=== PATIENT | male | born 1965 | race Caucasian/White ===

== ENCOUNTER 2016-11-10 01:24 | Inpatient (IN) | payer MEDICAID ==
[2016-11-10] VITALS (18 sets, daily range): BP systolic 91–136; BP diastolic 57–76; Ht 175.3 cm; Wt 64.9 kg
[~2016-11-10] VITALS: Ht 175.3 cm; Wt 64.9 kg
[~2016-11-10 01:24] MED LIST: ACETAMINOPHEN500 M1 PO; LEVAQUIN 7750 MG/150 IV; LIBRIUM25 MG PO; LOVENOX INJ100 MG/ML SC; XOPENEX 1.1.25 MG/3 UPD
[2016-11-10 02:53] LABS: BASOPHILS 0 % (0.0-2.0); EOSINOPHILS 0.2 % (0-7); HEMATOCRIT 35.1 % (42.0-54.0); HEMOGLOBIN 12.5 g/dL (13.5-17.5); IMMATURE GRANULOCYTES 0.2 % (0-5); LYMPHOCYTES 22.5 % (15-50); MCH 34.7 pg (26.0-34.0); MCHC 35.6 g/dL (31.0-37.0); MCV 97.5 fL (80.0-100.0); MEAN PLATELET VOLUME 9.9 fL (7.4-10.4); MONOCYTES 17.8 % (2-11); NEUTROPHILS 59.3 % (40-80); PLATELET COUNT 76 10x3/uL (130-400); RDW 13.9 % (11.5-14.5)
[2016-11-10 03:07] LABS: ALKALINE PHOSPHATASE 89 U/L (46-116); ALT (SGPT) 37 U/L (10-68); CALC OSMOLALITY 241 mosm/kg (275-300); CALCIUM 8.3 mg/dL (8.5-10.1); CARBON DIOXIDE 26.7 mmol/L (21.0-32.0); CREATININE - SERUM 0.7 mg/dL (0.6-1.3); GLUCOSE 109 mg/dL (74-106); MAGNESIUM - SERUM 1.8 mg/dL (1.8-2.4); POTASSIUM - SERUM 3.3 mmol/L (3.5-5.1); PROTEIN - SERUM 7.6 g/dL (6.4-8.2); UREA NITROGEN 9 mg/dL (7-18); eGFR NON AFRICAN AMERICAN > 90 mL/min (90-120)
[2016-11-10 03:08] LABS: SODIUM 120 mmol/L (136-145)
[2016-11-10 03:09] LABS: CHLORIDE - SERUM 85 mmol/L (98-107)
[2016-11-10 03:28] LABS: PLATELET ESTIMATE DECREASED; PLATELET MORPHOLOGY NORMAL PLT MORPH
--- NOTE | 2016-11-10 05:00 | NUR ---
RECEIVED PATIENT FROM ER, AAOX4, ANSWERS QUESTIONS APPROPRIATELY. ABLE TO WALK TO BED WITH STEADY GATE. VSS. SEE ADMISSION ASSESSMENT FLOWSHEET FOR DETAILS. SET UP ON MONITOR, NSR NOTED. WILL CONTINUE TO MONITOR.
--- NOTE | 2016-11-10 05:40 | NUR ---
CONFIRMED NPO STATUS WITH ER DOC. REPORTS THEY MAY WANT TO DO A BRONCHOSCOPY SOMETIME TODAY. PATIENT INFORMED.
--- NOTE | 2016-11-10 07:00 | NUR ---
ASSUMED CARE OF PATIENT. SHIFT ASSESSMENT COMPLETE. PT RESTING WITHOUT COMPLATINT. SEE FLOW SHEET FOR FINDINGS. PT HAS PIV TO RIGHT FOREARM. NO O2 AT THIS TIME. HAS URINAL AT BEDSIDE WITH STRAW COLORED URINE NOTED.
--- NOTE | 2016-11-10 08:05 | NUR ---
DR GORDON IN TO SEE PATIENT. DISCUSSED POSSIBLE HOSPICE.
--- NOTE | 2016-11-10 08:32 | NUR ---
CALLED [facility] WHERE PATIENT SAYS HAS MEDICATIONS FILLED. ONLY PRESCRIPTION ON FILE THROUGH THEM WAS FOR PREDNISONE BACK IN 2015.
--- NOTE | 2016-11-10 10:47 | NUR ---
PT SLEEPING AT THIS TIME. NO DISTRESS NOTED. WILL CONTINUE TO MONITOR.
--- NOTE | 2016-11-10 11:55 | NUR ---
DR BALDWIN HAS BEEN IN TO SEE PATIENT.
--- NOTE | 2016-11-10 13:30 | NUR ---
PT UP TO TOILET. HAS HAD LOOSE BM. PT BATHED WITH BATH WIPES. HAIR WASHED WITH SHAMPOO CAP. BLANK FERNANDESWN.
--- NOTE | 2016-11-10 14:59 | NUR ---
PT SLEEPING AT THIS TIME. NO DISTRESS NOTED.
--- NOTE | 2016-11-10 16:30 | NUR ---
PT STARTING TO HAVE SHAKES. CALLED DR GORDON AND LET HIM KNOW. ASKED FOR ORDER FOR LIBRIUM 25 MG Q6H AND ATIVAN 1-2MG Q2HPRN. ALSO SAID OK TO TRANSFER TO THE FLOOR.
--- NOTE | 2016-11-10 16:35 | NUR ---
Patient Name: DYLAN MCKEON Admission Status: ER Accout number: [id number] Admission Date: 11-10-2016 : 1965 Admission Diagnosis:HEMOPTYSIS Attending: SUZANNE Current LOS: 1 Anticipated DC Date: UNSURE Planned Disposition: Primary Insurance: [employer] Is the patient Alert and Oriented? Yes * How many steps to enter\exit or inside your home? THREE * PCP HAS BEEN SEEING DR GORDON * Pharmacy [facility] [address] * Preadmission Environment Home Alone * ADLs Independent * List name and contact numbers for known caregivers / representatives who currently or will assist patient after discharge: BONILLA SYED [phone] * Community resources currently utilized None * Additional services required to return to the preadmission environment? Yes * Can the patient safely return to the preadmission environment? No * Has this patient been hospitalized within the prior 30 days at any hospital? No Discharge Planning Comments: CM SPOKE WITH PATIENT TO ASSESS DC PLAN/NEEDS. HE STATED HE PLANS TO RETURN HOME ALONE AND PERSUE CHEMO TREATMENTS WITH DR GORDON. HE STATED HE HAS NO MEDICAL EQUIPMENT AND AMBULATES INDEPENDENTLY. HE IS UNSURE OF ANY DC NEEDS AT THIS TIME AND WISHES TO WAIT UNTIL CLOSER TO DISCHARGE TO DETERMINE IF HE WILL REQUIRE ANY ASSISTANCE OR DME AT DC. CM WILL FOLLOW AND ASSIST NEEDED. Side Sawyer: Blank Milian RN, CM
--- NOTE | 2016-11-10 17:49 | NUR ---
PT RUNNING 103.0 TEMP. NO MEDICATIONS ON EMAR TO REDUCE. CALLED AND LEFT MESSAGE FOR DR GORDON
--- NOTE | 2016-11-10 18:38 | NUR ---
PT ASSISTED UP TO TOILET. HAS HAD LOOSE BM.
--- NOTE | 2016-11-10 19:15 | NUR ---
SHIFT ASSESSMENT COMPLETE, SEE FLOWSHEET FOR DETIALS. O2 AT 2L WITH O2 SAT OF 96%. PIV IN RFA WITH BANANA BAG INFUSING. TEMP OF 100.0F, WILL MONITOR. ORANGE JUICE GIVEN PER REQUESTS. DENIES FURTHER NEED. VSS, CL IN REACH.
--- NOTE | 2016-11-10 20:30 | NUR ---
PATIENT HELPED TO BATHROOM. HAD LARGE LOOSE STOOL. HELPED BACK TO BED AND PUT BACK ON MONITOR.
--- NOTE | 2016-11-10 23:00 | NUR ---
PATIENT RESTING IN BED WATCHING TV. DENIES NEED. REASSESSMENT COMPLETE. NO ACUTE CHANGES FROM INITIAL ASSESSMENT. LOW GRADE FEVER STILL PRESENT. WILL MONITOR. CL IN REACH.
[2016-11-11] VITALS (7 sets, daily range): BP systolic 114–139; BP diastolic 69–80
--- NOTE | 2016-11-11 00:30 | NUR ---
TEMP OF 102.3 NOTED, PRN TYLENOL GIVEN.
--- NOTE | 2016-11-11 03:00 | NUR ---
PATIENT RESTING WITH EYES CLOSED. RR EVEN AND NONLABORED, VSS. CL IN REACH. WILL CONTINUE TO MONITOR.
[2016-11-11 04:35] LABS: BASOPHILS 0.1 % (0.0-2.0); EOSINOPHILS 0.3 % (0-7); HEMATOCRIT 35.7 % (42.0-54.0); HEMOGLOBIN 12.2 g/dL (13.5-17.5); IMMATURE GRANULOCYTES 0.3 % (0-5); LYMPHOCYTES 12.3 % (15-50); MCHC 34.2 g/dL (31.0-37.0); MCV 102.3 fL (80.0-100.0); MEAN PLATELET VOLUME 9.6 fL (7.4-10.4); MONOCYTES 19.1 % (2-11); NEUTROPHILS 67.9 % (40-80); PLATELET COUNT 86 10x3/uL (130-400); RBC 3.49 10x6/uL (4.20-6.10); RDW 14.3 % (11.5-14.5); WBC 7.6 10x3/uL (4.8-10.8)
[2016-11-11 04:44] LABS: CALC OSMOLALITY 272 mosm/kg (275-300); CALCIUM 8.5 mg/dL (8.5-10.1); CARBON DIOXIDE 29.4 mmol/L (21.0-32.0); CHLORIDE - SERUM 99 mmol/L (98-107); CREATININE - SERUM 0.8 mg/dL (0.6-1.3); GLUCOSE 125 mg/dL (74-106); MAGNESIUM - SERUM 2.2 mg/dL (1.8-2.4); POTASSIUM - SERUM 3.4 mmol/L (3.5-5.1); SODIUM 137 mmol/L (136-145); eGFR NON AFRICAN AMERICAN > 90 mL/min (90-120)
[2016-11-11 04:57] LABS: UREA NITROGEN 6 mg/dL (7-18)
--- NOTE | 2016-11-11 05:00 | NUR ---
RECEIVED LAB VALUES, ELECTROLYTE PROTOCOL FOLLOWED. VSS.
--- NOTE | 2016-11-11 07:00 | NUR ---
PT REPORT REC'D, PT CARE ASSUMED. PT SITTING UP IN BED AAO X4. PT C/O GENERALIZED PAIN AT 8/10, REPOSITIONED PT, "DID NOT HELP". RIGHT FOREARM PIV WITH NS INFUSING, DRESSING CDI. PT UP TO BATHROOM NEEDED. BILAT PEDAL PULSES PALPABLE. VSS. SHIFT ASSESSMENT COMPLETED, SEE FLOW SHEET. ROOM FREE OF CLUTTER CALL LIGHT IN REACH, WILL CONTINUE TO MONITOR PT.
[2016-11-11 08:53] LABS: POTASSIUM - SERUM 3.8 mmol/L (3.5-5.1); VANCOMYCIN - TROUGH 4.7 ug/mL (10.0-20.0)
--- NOTE | 2016-11-11 11:52 | NUR ---
PT RESTING WITH EYES CLOSED, NO C/O PAIN, VSS. WILL CONTINUE TO MONITOR PT.
--- NOTE | 2016-11-11 12:49 | NUR ---
PT RESTING WITH EYES CLOSED, NO C/O PAIN, VSS. WILL CONTINUE TO MONITOR PT.
--- NOTE | 2016-11-11 14:04 | NUR ---
REPORT RECD PT CARE ASSUMED AT THIS TIME.
--- NOTE | 2016-11-11 14:45 | NUR ---
PT ASSITED TO BATHROOM. PT DOES WELL INDEPENENTLY. PT COUGHS VIGOROUSLY IN EFFORT TO CLEAR THROAT. PT STATES HE IS ALRIGHT AND SPITS LARGE MUCUS BALL INTO TRASH. PT ASSISTED BACK TO BED AND PROVIDED WITH WARM BLANKET AND TYLENOL. PT ATTACHED BACK TO MONITORS.
--- NOTE | 2016-11-11 17:51 | NUR ---
PT SITTING UP IN BED EATING DINNER AT THIS TIME. PT STATES HE THINKS HE FEELS A LITTLE BIT BETTER.
--- NOTE | 2016-11-11 19:20 | NUR ---
SHIFT ASSESSMENT COMPLETE PER FLOWSHEET, SEE FOR DETAILS. AAOX4, NC @ 2L WITH SATS 94-97%. PIV IN RIGHT FA WITH NS @ 100MLS/HR. PATIENT COMPLAINING OF SHARP CHEST PAIN ALONG RIGHT SIDE OF RIBS THAT IS CHRONIC. VSS WILL MONITOR.
--- NOTE | 2016-11-11 19:30 | NUR ---
DR GORDON AT BEDSIDE, ORDERS RECEIVED.
--- NOTE | 2016-11-11 21:05 | NUR ---
PATIENT RESTING IN BED WITH EYES CLOSED. VSS.
--- NOTE | 2016-11-11 23:00 | NUR ---
REASSESSMENT COMPLETE. NO ACUTE CHANGES. VSS, APPLE JUICE GIVEN PER REQUESTS. CL IN REACH, WILL MONITOR.
[2016-11-12] VITALS (8 sets, daily range): BP systolic 116–136; BP diastolic 54–88
--- NOTE | 2016-11-12 01:00 | NUR ---
RESTING WITH EYES CLOSED, VSS.
--- NOTE | 2016-11-12 03:00 | NUR ---
DENIES NEED AT THIS TIME. VSS. REASSESSMENT DONE. NO ACUTE CHANGES FROM INITIAL ASSESSMENT.
[2016-11-12 04:17] LABS: BASOPHILS 0.1 % (0.0-2.0); EOSINOPHILS 1.1 % (0-7); HEMATOCRIT 33.8 % (42.0-54.0); HEMOGLOBIN 11.1 g/dL (13.5-17.5); IMMATURE GRANULOCYTES 0.1 % (0-5); LYMPHOCYTES 17.2 % (15-50); MCH 34.6 pg (26.0-34.0); MCHC 32.8 g/dL (31.0-37.0); MCV 105.3 fL (80.0-100.0); MEAN PLATELET VOLUME 9.5 fL (7.4-10.4); MONOCYTES 18.1 % (2-11); NEUTROPHILS 63.4 % (40-80); PLATELET COUNT 97 10x3/uL (130-400); RBC 3.21 10x6/uL (4.20-6.10); RDW 14.5 % (11.5-14.5); WBC 8.9 10x3/uL (4.8-10.8)
[2016-11-12 04:34] LABS: CALC OSMOLALITY 268 mosm/kg (275-300); CALCIUM 8.2 mg/dL (8.5-10.1); CARBON DIOXIDE 27.2 mmol/L (21.0-32.0); CHLORIDE - SERUM 102 mmol/L (98-107); CREATININE - SERUM 0.7 mg/dL (0.6-1.3); GLUCOSE 106 mg/dL (74-106); MAGNESIUM - SERUM 2.1 mg/dL (1.8-2.4); POTASSIUM - SERUM 3.9 mmol/L (3.5-5.1); SODIUM 136 mmol/L (136-145); UREA NITROGEN 4 mg/dL (7-18); eGFR NON AFRICAN AMERICAN > 90 mL/min (90-120)
--- NOTE | 2016-11-12 05:00 | NUR ---
PATIENT RESTING IN BED WITH EYES CLOSED, VSS.
--- NOTE | 2016-11-12 07:30 | NUR ---
PT NOTED TO BE WITH TREMORS TACHYCARDIC AND TACHYPNIC.
--- NOTE | 2016-11-12 10:00 | NUR ---
RESTING IN BED STATES "I FEEL LIKE IM DT'ING"
--- NOTE | 2016-11-12 16:05 | NUR ---
UP TO CHAIR. STATES "IM FEELING A LITTLE BETTER"
--- NOTE | 2016-11-12 16:55 | NUR ---
COMPLETE BATH AND SHAMPOO GIVEN. LINENS CHANGED.
--- NOTE | 2016-11-12 19:30 | NUR ---
RECEIVED PATIENT AWAKE SITTING IN CHAIR AT BEDSIDE, ASSESSMENT COMPLETED PER FLOWSHEET. PATIENT IS AO X4, DEMEANOR IS FRIENDLY AND CALM. EYES PERRLA @ 3MM WITH BRISK RESPONSE, SLCERA IS WHITE. ORAL/NASAL MUCOSA IS MOIST AND INTACT, TONGUE MIDLINE. S1/S2 NOTED WITH PATIENT NSR ON TELEMETRY, HR 91. BREATHING IS SLIGHTLY RAPID WITH WHEEZE NOTED INSPIRATION/EXPIRATION IN UPPER LOBES WITH DIMINISHED LOWER, PATIENT ON 4L VIA NC WITH O2 SAT 94%. ABDOMEN IS SOFT AND FLAT, BOWEL SOUNDS ACTIVE X4. PATIENT USES URINAL WITHOUT DIFFICULTY, AMBULATES TO CHAIR WITHOUT ASSISTANCE. FULL ROM ALL EXTREMITIES WITH SLIGHT WEAKNESS NOTED, ALL PULSES PALPABLE. 20G PIV NOTED R FOREARM, PATENT WITH FLUIDS INFUSING. PATIENT STATES CHRONIC PAIN 3/10 GENERALIZED, PROVIDED PRN MEDICATION FOR PATIENT DT/TREMORS AND WILL REASSESS. PATIENT DENIES OTHER NEEDS AT THIS TIME, ALL VSS AND COLBY CONTINUE TO MONITOR.
--- NOTE | 2016-11-12 21:09 | NUR ---
NO VISITORS AT THIS TIME, PATIENT RESTING IN CHAIR WITH EYES CLOSED. PATIENT STILL EATING ON DINNER TRAY, REHEATED AT PATIENT REQUEST. NO FURTHER NEEDS AT THIS TIME, ALL VSS AND WILL CONTINUE TO MONITOR.
--- NOTE | 2016-11-12 22:40 | NUR ---
Patient transferred from chair to bed, one person assist. Positioned for comfort with patient c/o "cold", warm blankets provided for relief. Patient denies other needs at this time, all VSS and will continue to monitor.
[2016-11-13] VITALS (7 sets, daily range): BP systolic 119–138; BP diastolic 66–80
--- NOTE | 2016-11-13 01:00 | NUR ---
PATIENT RESTING IN BED WITH EYES CLOSED, BREATHING IS RAPID AND SHALLOW. PATIENT OXYGEN SAT 98% ON 2L VIA NC. NO FURTHER NEEDS AT THIS TIME, ALL VSS AND WILL CONTINUE TO MONITOR.
--- NOTE | 2016-11-13 03:00 | NUR ---
PATIENT RESTING IN BED WITH EYES CLOSED, BREATHING IS SHALLOW AND RAPID. PATIENT O2 SAT IS 97% ON 2L VIA NC, FREQUENT COUGH WITH THICK VERDE SPUTUM. PATIENT SINUS TACH ON TELEMETRY WITH HR 126, RHYTHMIC AND REGULAR. PATIENT DENIES PAIN OR OTHER NEEDS AT THIS TIME, ALL VSS AND WILL CONTINUE TO MONITOR.
[2016-11-13 03:44] LABS: BASOPHILS 0.2 % (0.0-2.0); HEMOGLOBIN 11.4 g/dL (13.5-17.5); IMMATURE GRANULOCYTES 0.2 % (0-5); LYMPHOCYTES 13.1 % (15-50); MCH 34.3 pg (26.0-34.0); MCHC 32.6 g/dL (31.0-37.0); MCV 105.4 fL (80.0-100.0); MONOCYTES 18.4 % (2-11); NEUTROPHILS 65.1 % (40-80); RBC 3.32 10x6/uL (4.20-6.10); RDW 14.3 % (11.5-14.5)
[2016-11-13 03:45] LABS: PLATELET COUNT 146 10x3/uL (130-400); WBC 6.4 10x3/uL (4.8-10.8)
[2016-11-13 03:57] LABS: CALC OSMOLALITY 268 mosm/kg (275-300); CALCIUM 8.2 mg/dL (8.5-10.1); CARBON DIOXIDE 27.1 mmol/L (21.0-32.0); CHLORIDE - SERUM 102 mmol/L (98-107); CREATININE - SERUM 0.8 mg/dL (0.6-1.3); GLUCOSE 122 mg/dL (74-106); MAGNESIUM - SERUM 1.9 mg/dL (1.8-2.4); POTASSIUM - SERUM 4.1 mmol/L (3.5-5.1); SODIUM 135 mmol/L (136-145); UREA NITROGEN 6 mg/dL (7-18); eGFR NON AFRICAN AMERICAN > 90 mL/min (90-120)
--- NOTE | 2016-11-13 05:10 | NUR ---
PATIENT LAYING IN BED WITH EYES OPEN. PATIENT URINATED IN BED WITHOUT REALIZING, LEONE CATH INSERTED WITHOUT DIFFICULTY. FULL BED BATH/LINEN CHANGE PERFORMED, TOLERATED WELL. PATIENT DENIES PAIN OR OTHER NEEDS AT THIS TIME, ALL VSS AND WILL CONTINUE TO MONITOR.
[2016-11-13 06:39] LABS: APPEARANCE CLEAR (CLEAR); BACTERIA FEW /hpf (NONE SEEN); BILIRUBIN NEGATIVE (NEGATIVE); COLOR YELLOW (YELLOW); EPITHELIAL CELLS OCC /hpf (0-5); GLUCOSE NEGATIVE (NEGATIVE); KETONE NEGATIVE (NEGATIVE); LEUKOCYTE ESTERASE NEGATIVE (NEGATIVE); NITRITE NEGATIVE (NEGATIVE); PROTEIN NEGATIVE (NEGATIVE); RED CELLS - URINE 0-5 /hpf (0-5); SPECIFIC GRAVITY 1.005 (1.005-1.020); UROBILINOGEN NORMAL (NORMAL); WHITE CELLS - URINE RARE /hpf (0-5)
--- NOTE | 2016-11-13 07:00 | NUR ---
REC'D CARE OF PT. A&O X3.
--- NOTE | 2016-11-13 07:37 | NUR ---
ATTEMPTED TO CALL REPORT TO TRANSFER TO ROOM 2227. [facility] WILL CALL ME BACK.
--- NOTE | 2016-11-13 07:44 | NUR ---
REPORT CALLED TO STAR AND READY TO TRANSFER VIA WC TO ROOM 2227.
--- NOTE | 2016-11-13 07:59 | NUR ---
DR. WHITE AT BEDSIDE. DISCUSSED FEVER WITH HIM.
--- NOTE | 2016-11-13 08:20 | NUR ---
RECEIVED TO ROOM 2227 [facility] VIA BED.
--- NOTE | 2016-11-13 10:08 | EC ---
PATIENT:DYLAN MCKEON DATE OF SERVICE: 11/10/16 SEX: M MEDICAL RECORD: [id number] DATE OF : [birth year] LOCATION:D.MS [facility] AGE OF PATIENT: 51 ADMISSION DATE: 11/10/16 REFERRING PHYSICIAN: INTERPRETING PHYSICIAN: YASMIN HUANG MD ECHOCARDIOGRAM REPORT ECHO CHARGES 4 ECHO COMPLETE CLINICAL DIAGNOSIS: PERICARDIAL EFFUSION ? ECHOCARDIOGRAPHIC MEASUREMENTS (adult normal given) AC root (d.<3.7cm) 3.6 LV Septum d (<1.2 cm> 1.2 Valve Excursion 1.8 LV Septum (systole) 2.0 Left Atria (s.<4.0cm> 2.9 LVPW d(<1.2cm) 1.4 RV (d.<2.3cm) 2.6 LVPW (sytole) 2.0 LV diastole(<5.6CM) 4.4 MV E-F(>70mm/sec) LV systole 2.5 LVOT Diameter 1.8 MV exc.(>10mm) Est.ejection fraction (50-75%) Pericardial Effusion N DOPPLER: LVIT A 89.0 E 76.0 LA RVSP 22.0 LVOT 120 AOP1/2T Asc. Ao 175 RVOT 89.0 RA PA 145 AV Gradient Peak 12.3 AV Mean 4.3 AV Area 1.7 MV Gradient Peak 3.6 MV Mean 1.3 MV Area COMMENTS: Telemetry Nurse: Lizbet LEEOE Head Of Physics:1 Dr. Huang TAPE# PACS DATE OF SERVICE: 11/10/2016 Echocardiogram FINDINGS: 1. Left ventricle chamber size is within normal limits. Left ventricular systolic function is normal. Overall ejection fraction estimated at 60%-65%. 2. Left atrium, right atrium and right ventricular chamber sizes are within normal limits. 3. Valvular structures have normal structure and motion. ECHOCARDIOGRAM REPORT [id number] DYLAN MCKEON 4. Doppler interrogation reveals no significant valvular insufficiency or stenosis. Pulmonary systolic pressure is normal estimated at 22 mmHg. 5. No evidence of pericardial effusion or left ventricular thrombus. TRANSINT:[id number] Voice Confirmation ID: [id number] DOCUMENT ID: [id number] YASMIN HUANG MD at 1008 CC: [id number] DICTATION DATE: 11/10/16 1323 PROFESSOR OF JOURNALISM: 11/10/16 1523 ADM IN [facility] [address] [place] [address]
--- NOTE | 2016-11-13 11:59 | NUR ---
MEDS ADMINISTERED PER ORDER. CALL LIGHT IN REACH.
--- NOTE | 2016-11-13 12:14 | NUR ---
HAVING SMALL AMOUNT OF CLEAR EMESIS. NO C/O NAUSEA. ORAL CARE PER STAFF. DENIES NEEDS. LUNGS WITH CRACKLES THROUGHOUT. WILL CONTINUE TO MONITOR.
--- NOTE | 2016-11-13 14:25 | NUR ---
RESTING WITH EYES CLOSED. RESP EVEN AND UNLABORED. CALL LIGHT IN REACH.
--- NOTE | 2016-11-13 15:03 | NUR ---
NUTRITION MONITORING & EVAL CHART REVIEWED. PT DID NOT EAT BREAKFAST OR LUNCH. WILL CONTINUE TO PROVIDE DIET, MONITOR PO INTAKE. RD FOLLOWING
--- NOTE | 2016-11-13 16:19 | NUR ---
ZOSYN IVPB PER ORDER. CALL LIGHT IN REACH.
[2016-11-13 17:11] LABS: ANCA - ANTIMYELOPEROXIDASE <9.0 U/mL (0.0-9.0); ANCA - ANTIPROTEINASE 3 <3.5 U/mL (0.0-3.5); ANCA - ATYPICAL <1:20 titer (Neg:<1:20); ANCA - CYTOPLASMIC <1:20 titer (Neg:<1:20); ANCA - PERINUCLEAR <1:20 titer (Neg:<1:20)
--- NOTE | 2016-11-13 18:49 | NUR ---
NO CHANGES IN INITIAL ASSESSMENT. SCDs TO BLE. BED ALARM ON. CALL LIGHT IN REACH. WILL CONTINUE WITH PLAN OF CARE.
[2016-11-14] VITALS (13 sets, daily range): BP systolic 103–131; BP diastolic 59–80
--- NOTE | 2016-11-14 06:34 | NUR ---
PATIENT IS RESTING COMFORTABLY IN BED. DENIES PAIN @ THIS TIME. IS TO HAVE A THROCENTESIS TODAY @ 0800. CONSENT FORMS ARE SIGNED AND PATIENT WAS INFORMED OF PROCEDURE. BED LOW, LOCKED, CALL LIGHT IN REACH.
[2016-11-14 06:35] LABS: BASOPHILS 0.3 % (0.0-2.0); EOSINOPHILS 1.8 % (0-7); HEMATOCRIT 34.7 % (42.0-54.0); HEMOGLOBIN 11.4 g/dL (13.5-17.5); IMMATURE GRANULOCYTES 0.3 % (0-5); LYMPHOCYTES 14.2 % (15-50); MCH 34.3 pg (26.0-34.0); MCHC 32.9 g/dL (31.0-37.0); MCV 104.5 fL (80.0-100.0); MONOCYTES 19.9 % (2-11); NEUTROPHILS 63.5 % (40-80); RBC 3.32 10x6/uL (4.20-6.10); RDW 13.9 % (11.5-14.5); WBC 7.7 10x3/uL (4.8-10.8)
[2016-11-14 06:43] LABS: PLATELET COUNT 193 10x3/uL (130-400)
[2016-11-14 06:46] LABS: APTT 38.2 SECONDS (22.8-39.4); INR 1.13 (0.85-1.17); PROTIME 14.4 SECONDS (11.6-15.0)
[2016-11-14 06:56] LABS: CALC OSMOLALITY 272 mosm/kg (275-300); CALCIUM 8.6 mg/dL (8.5-10.1); CARBON DIOXIDE 28.4 mmol/L (21.0-32.0); CHLORIDE - SERUM 104 mmol/L (98-107); CREATININE - SERUM 0.7 mg/dL (0.6-1.3); GLUCOSE 95 mg/dL (74-106); MAGNESIUM - SERUM 1.8 mg/dL (1.8-2.4); POTASSIUM - SERUM 4.4 mmol/L (3.5-5.1); SODIUM 138 mmol/L (136-145); UREA NITROGEN 5 mg/dL (7-18); eGFR NON AFRICAN AMERICAN > 90 mL/min (90-120)
--- NOTE | 2016-11-14 07:47 | CN ---
PATIENT NAME:DYLAN MCKEON MEDICAL RECORD: [id number] : [birth year] LOCATION:D.MS [facility]27 ADMIT DATE: 11/10/16 ACCOUNT: [id number] CONSULTING PHYSICIAN: ASHOK PAK MD REFERRING PHYSICIAN: BERTA GORDON MD DATE OF CONSULTATION: 11/13/2016 SURGICAL CONSULTATAION REASON FOR CONSULTATION: Bronchial mass, hemoptysis. 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 He has been followed at [facility]. He has had multiple endobronchial biopsies. The patient is completely noncompliant with care. He has been practicing alcoholic. He presented to the hospital with alcohol intoxication as well as hemoptysis. REVIEW OF SYSTEMS: Unobtainable. The patient is very confused. PAST MEDICAL HISTORY: Childhood asthma, alcoholism, recreational drug use, synovial sarcoma. PAST SURGICAL HISTORY: Tonsilloadenoidectomy, bronchoscopy and lung biopsy. ALLERGIES: Unknown. MEDICATIONS: Please see [facility] for full list of medications. PERSONAL HISTORY: The patient has been practicing daily alcoholic. He is still smoking daily. He drinks. FAMILY HISTORY: Unknown. PHYSICAL EXAMINATION: VITAL SIGNS: Heart rate 99.9, pulse rate 105, respiratory rate 33, blood pressure 127/50, satting 95% on 3.5 liters of nasal cannula. GENERAL: A well-developed, well-nourished male in moderate distress. PSYCHIATRIC: He is alert and oriented. EYES: Extraocular muscles are intact. EAR, NOSE AND THROAT: He has got poor dentition. PULMONARY: He has absent breath sounds on the right, decreased breath sounds on the left. CARDIOVASCULAR: Normal sinus rhythm, tachycardic. ABDOMEN: Soft, nontender and nondistended. SKIN: Warm and dry with normal turgor. EXTREMITIES: A 2+ pulses, mild peripheral edema. NEUROLOGIC: He has a GCS of 15 with no focal deficits. CT chest images were personally reviewed, which showed endobronchial occlusion of right mainstem bronchus, atelectasis, infiltrate in the right lung, moderate right pleural effusion with mediastinal adenopathy. 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 The patient has not had a bronchoscopy ____ 6-8 months. I do not recommend endobronchus ____at this time CONSULT REPORT [id number] MIKEDYLAN J as I do not know the extent of the lesion within the bronchus. Pulmonology is following, recommend repeat bronchoscopy prior to possible stent placement. The patient would likely not benefit from an endobronchial stent. Although he is severely noncompliant and continues to drink and smoke daily, treatment at this point, would likely be requires surgical resection of the right lung. Recommend consulting cardiothoracic surgery for evaluation. Recommending patient be evaluated by palliative care for potential hospice. TRANSINT:[id number] Voice Confirmation ID: [id number] DOCUMENT ID: [id number] ASHOK PAK MD at 0747 CC: [id number] DICTATION DATE: 11/13/161422 BAND BIAS MACHINE OPERATOR: 11/14/16 0023 ADM IN [facility] [address] [place] [address]
--- NOTE | 2016-11-14 08:25 | NUR ---
SCHEDULED MEDICATIONS ADMINISTERED AT THIS TIME WELL PRN ATIVAN AND TYLENOL FOR TEMP 100.9 TEMPORAL. IV TO RIGHT WRIST PATENT. ASSESSMENT PERFORMED PER FLOWSHEET. BED ALARM AND SCD'S ON. CONSENT FOR SIGNED FOR PROCEDURE. CALL LIGHT IN REACH, WILL CONTINUE WITH PLAN OF CARE.
--- NOTE | 2016-11-14 09:34 | NUR ---
TAKEN FOR THORACENTESIS AT THIS TIME. WILL MONITOR PT WHEN HE RETURNS TO ROOM.
--- NOTE | 2016-11-14 10:10 | NUR ---
RECEIVED BACK TO ROOM FROM IR AT THIS TIME. DRESSING TO RIGHT CHEST C/D/I AND VITAL SIGNS STABLE. SCHEDULED MEDICATIONS ADMINSITERED WITHOUT DIFFICULTY. CALL LIGHT IN REACH AND BED ALARM ON. WILL CONTINUE WITH PLAN OF CARE.
--- NOTE | 2016-11-14 12:05 | NUR ---
REMAINS STABLE AT THIS TIME. DRESSING TO RIGHT CHEST C/D/I. CALL LIGHT IN REACH, DENIES NEEDS AT PRESENT TIME. WILL CONTINUE WITH PLAN OF CARE.
[2016-11-14 12:10] LABS: PROTEIN - BODY FLUID 3.8 G/DL
--- NOTE | 2016-11-14 13:25 | NUR ---
SLEEPING AT THIS TIME. RESPIRATIONS EVEN AND NON LABORED. CALL LIGHT IN REACH, WILL CONTINUE WITH PLAN OF CARE.
[2016-11-14 13:59] LABS: EOS BF 1 %; LYMPH - BF 12 %; MACROPHAGES BF 6 %; NEUT - BF 81 %
--- NOTE | 2016-11-14 19:10 | NUR ---
RECIEVED SHIFT REPORT. PT IS LYING IN BED. ALERT AND ORIENTED AND ABLE TO VERBALIZE NEEDS. IV IS PATENT AND FLUIDS ARE RUNNING PER ORDER. PT CAN TURN SELF IN BED FOR COMFORT AND SKIN CARE, HOWEVER HE NEEDS TO BE REMINDED. LEONE IS DRAINING URINE BY GRAVITY. O2 @ 2 PER NASAL CANNULA. SCD'S ON. DRESSING TO RIGHT SIDE C/D/I. PT DENIES ANY PAIN AT THIS TIME. NO NEEDS ARE VERBALIZED AT THIS TIME. WILL CONTINUE TO MONITOR. SIDE RAILS ARE UP X 2. BED IS IN LOWEST POSITION. CALL LIGHT IS WITHIN REACH.
--- NOTE | 2016-11-14 20:40 | NUR ---
SHIFT ASSESSMENT COMPLETED. PRN TYLENOL GIVEN FOR FEVER OF 101. NO NEEDS ARE VOICED. WILL MONITOR. SIDE RAILS X 2. BED LOW. CALL LIGHT IN REACH.
[2016-11-15] VITALS: BP 114/79
[2016-11-15 04:09] VITALS: BP 115/736
[2016-11-15 06:25] LABS: CALC OSMOLALITY 273 mosm/kg (275-300); CALCIUM 7.9 mg/dL (8.5-10.1); CARBON DIOXIDE 26.1 mmol/L (21.0-32.0); CHLORIDE - SERUM 102 mmol/L (98-107); CREATININE - SERUM 0.7 mg/dL (0.6-1.3); GLUCOSE 108 mg/dL (74-106); MAGNESIUM - SERUM 1.8 mg/dL (1.8-2.4); POTASSIUM - SERUM 3.7 mmol/L (3.5-5.1); SODIUM 138 mmol/L (136-145); UREA NITROGEN 5 mg/dL (7-18); eGFR NON AFRICAN AMERICAN > 90 mL/min (90-120)
[2016-11-15 07:16] LABS: BASOPHILS 0.1 % (0.0-2.0); EOSINOPHILS 3.2 % (0-7); HEMATOCRIT 33.4 % (42.0-54.0); HEMOGLOBIN 11.1 g/dL (13.5-17.5); IMMATURE GRANULOCYTES 0.3 % (0-5); LYMPHOCYTES 11.6 % (15-50); MCH 34.5 pg (26.0-34.0); MCHC 33.2 g/dL (31.0-37.0); MCV 103.7 fL (80.0-100.0); MONOCYTES 12.9 % (2-11); NEUTROPHILS 71.9 % (40-80); PLATELET COUNT 215 10x3/uL (130-400); RBC 3.22 10x6/uL (4.20-6.10); RDW 13.7 % (11.5-14.5); WBC 7.5 10x3/uL (4.8-10.8)
--- NOTE | 2016-11-15 07:53 | NUR ---
PRN TYLENOL 500MG ADMINISTERED AT THIS TIME FOR TEMPERATURE OF 103.0 ORALLY AT THIS TIME. LARGE BLANKET REMOVED FROM BLANKET AND HEAT TURNED OFF IN PT'S ROOM. DENIES FURTHER NEEDS AT THIS TIME. CALL LIGHT IN REACH, WILL CONTINUE WITH PLAN OF CARE.
[2016-11-15 08:40] VITALS: BP 120/74
--- NOTE | 2016-11-15 09:12 | NUR ---
TEMPERATURE CHECKED AND 101.0 AT THIS TIME. SCHEDULED MEDICATIONS ADMINISTERED AND ASSESSMENT PERFORMED PER FLOWSHEET. SCD'S REMOVED AND SKIN TO BLE WNL. CALL LIGHT IN REACH, WILL CONTINUE WITH PLAN OF CARE.
--- NOTE | 2016-11-15 10:54 | NUR ---
SCHEDULED MEDICATIONS GIVEN AT THIS TIME. SCD'S REMAIN OFF. CALL LIGHT IN REACH AND PT DENIES NEEDS AT THIS TIME. WILL CONTINUE WITH PLAN OF CARE.
[2016-11-15 13:31] VITALS: BP 183/73
[2016-11-15 14:21] LABS: FUNGUS STAIN Final report (())
[2016-11-15 15:24] LABS: ACID FAST SMEAR Negative (()); AFB SPECIMEN PROCESSING Concentration (())
[2016-11-15 17:19] VITALS: BP 117/74
--- NOTE | 2016-11-15 17:53 | NUR ---
PRN TYLENOL ADMINISTERED AT THIS TIME FOR FEVER. PT DRINKING BEER ORDERED AT THIS TIME. NO S/S DISPLAYED OF DT'S. CALL LIGHT IN REACH, WILL CONTINUE WITH PLAN OF CARE.
[2016-11-15 21:35] VITALS: BP 111/65
--- NOTE | 2016-11-16 01:17 | NUR ---
REC'D PATIENT LYING SEMI FOWLERS IN BED. ALERT AND ORIENTED X4. DENIED PAIN @ THIS TIME. MUCUS MEMBRANES PINK AND MOIST. DENIES HEARING AND VISION PROBLEMS. ABDOMEN SOFT, NON TENDER TO TOUCH. HAS LEONE. URINE CLEAR, STRAW-COLORED, DRAINING TO GRAVITY. FULL ROM IN UPPER AND LOWER EXTREMITIES. CAP REFILL <3 IN UPPER AND LOWER EXTREMITES. GAIT IS UNSTEADY. IS ON 1000ML FLUID RESTRICTION. DENIED NEEDS @ THIS TIME. INSTUCTED TO CALL IF NEEDED ANYTHING. BED LOW, LOCKED, CALL LIGHT IN REACH, BED ALARM ON.
--- NOTE | 2016-11-16 02:58 | NUR ---
PATIENT SITTING UP IN BED WATCHING TV. PERFORMED LEONE CARE. PATIENT IS RED BETWEEN THE LEGS AND STATED THAT IT BURNED AFTER I WHIPPED HIM. PUT SOME CREAM ON HIM. PATIENT STATED THAT IT FELT BETTER. ALSO WANTED TO KNOW IF I COULD GET HIM SOMETHING TO EAT. GAVE HIM A SANDWICH. DENIED FURTHER NEEDS @ THIS TIME. INSTRUCTED TO CALL IF NEEDED ANYTHING. BED LOW, LOCKED, CALL LIGHT IN REACH, BED ALARM ON.
--- NOTE | 2016-11-16 04:08 | NUR ---
EYES CLOSED RESPIRATIONS WITH EASE AND UNLABORED. SR UP X2 CALL LIGHT WITHIN REACH.
--- NOTE | 2016-11-16 07:45 | NUR ---
PATIENT IN BED WITH IV INTACT. NO COMPLAINTS AT THIS TIME. SITTING UP WAITING FOR BREAKFAST. CALL LIGHT WITHIN REACH.
--- NOTE | 2016-11-16 08:08 | NUR ---
SITTING IN BED, REQUESTING BREAKFAST, DENIES OTHER NEEDS, CALL LIGHT IN REACH, BED LOWEST POSITION, WILL CONTINUE TO MONITOR
[2016-11-16 08:29] VITALS: BP 108/67
[2016-11-16 12:43] VITALS: BP 108/64
[2016-11-16 15:48] VITALS: BP 126/79
[2016-11-16 21:54] VITALS: BP 98/59
--- NOTE | 2016-11-16 23:51 | NUR ---
PT IS ASLEEP WITH EASY RESPIRATIONS AND O2 ON ORDERED. NO DISTRESS NOTED. THE BED IS LOW, RAILS UP X'S 2 WITH THE CALL LIGHT AT HAND.
[2016-11-17 06:33] LABS: BASOPHILS 0.3 % (0.0-2.0); EOSINOPHILS 1.8 % (0-7); HEMATOCRIT 33.1 % (42.0-54.0); IMMATURE GRANULOCYTES 0.3 % (0-5); MCH 34.2 pg (26.0-34.0); MCHC 33.2 g/dL (31.0-37.0); MCV 102.8 fL (80.0-100.0); MEAN PLATELET VOLUME 9.8 fL (7.4-10.4); MONOCYTES 11.8 % (2-11); NEUTROPHILS 72.8 % (40-80); RBC 3.22 10x6/uL (4.20-6.10); RDW 13.6 % (11.5-14.5); WBC 9.3 10x3/uL (4.8-10.8)
[2016-11-17 06:43] LABS: PLATELET COUNT 283 10x3/uL (130-400)
[2016-11-17 06:48] LABS: CALC OSMOLALITY 280 mosm/kg (275-300); CALCIUM 8.4 mg/dL (8.5-10.1); CARBON DIOXIDE 28.9 mmol/L (21.0-32.0); CHLORIDE - SERUM 107 mmol/L (98-107); CREATININE - SERUM 0.7 mg/dL (0.6-1.3); GLUCOSE 112 mg/dL (74-106); MAGNESIUM - SERUM 1.9 mg/dL (1.8-2.4); POTASSIUM - SERUM 3.8 mmol/L (3.5-5.1); SODIUM 142 mmol/L (136-145); UREA NITROGEN 5 mg/dL (7-18); eGFR NON AFRICAN AMERICAN > 90 mL/min (90-120)
--- NOTE | 2016-11-17 08:10 | NUR ---
RESTING IN BED, EMPTIED 2299 FROM SULEMA, DENIES NEEDS, ASSESSMENT COMPLETE, CALL LIGHT IN REACH, BED LOWEST POSITION, WILL CONTINUE TO MONITOR
[2016-11-17 08:31] VITALS: BP 106/59
[2016-11-17 12:34] VITALS: BP 111/66
--- NOTE | 2016-11-17 13:40 | NUR ---
NUTRITION MONITORING & EVAL CHART REVIEWED. PT ON REG DIET, POOR PO INTAKE. WILL CONTINUE TO PROVIDE CURRENT DIET, HONOR FOOD PREFERENCES. RD FOLLOWING
--- NOTE | 2016-11-17 15:13 | NUR ---
RESTING QUIETLY IN BED SIPPING ON BEER. NO C/O AT THIS TIME. STATED HE WAS FEELING PRETTY ROUGH AT THIS TIME. DENIES NEEDS.
[2016-11-17 16:26] VITALS: BP 100/62
--- NOTE | 2016-11-17 18:49 | NUR ---
SLEEPING, EASILY AROUSED, DENIES NEEDS, BED LOWEST POSITION, CALL LIGHT IN REACH
--- NOTE | 2016-11-17 19:15 | NUR ---
Received patient resting quietly in bed, PIV in left forearm infusing NS @30ml/hr. Patient somewhat drowsy, but is oriented x 4. SCDs on, bed alarm on. No voiced complaints at this time.
--- NOTE | 2016-11-17 21:54 | NUR ---
Complains of feeling shaky, tremors noted to arms and hands. Given routine dose of Librium now. Oxygen on @ 2L/min via nasal cannula, encouraged to take deep breaths. IV in right forearm infusing NS @30ml/hr. Patient got IV tubing tangled in bedrail, detangled by nurse and PIV in place.
[2016-11-17 22:05] VITALS: BP 118/73
[2016-11-18] VITALS: BP 92/57
--- NOTE | 2016-11-18 03:30 | NUR ---
Restless in bed, confused, pulled out his PIV, IV pump turned off at this time.
--- NOTE | 2016-11-18 04:09 | NUR ---
Given Tylenol ES 1 tab po PRN for complaints of generalized pain. Will monitor for effectiveness.
--- NOTE | 2016-11-18 05:00 | NUR ---
Restarted PIV with #20 gauge needle in under side of right forearm. NS IV restarted and set to infuse @30ml/hr.
--- NOTE | 2016-11-18 05:10 | NUR ---
Given Ativan 2mg per IV for complaints of severe anxiety, restless and fidgety in bed.
[2016-11-18 05:26] VITALS: BP 109/68
--- NOTE | 2016-11-18 06:00 | NUR ---
Has slept for short periods. Calmer at this time, Ativan deemed effective, pain free at this time, still slightly shaky with fine hand tremors. Has voided 1150mls this shift via vargas catheter.
--- NOTE | 2016-11-18 07:10 | NUR ---
BMP not resulted yet in computer for electrolyte protocol.
[2016-11-18 08:57] VITALS: BP 99/63
--- NOTE | 2016-11-18 12:05 | NUR ---
PATIENT IN LOW ADAMS POSITION ALERT AND RESTING QUIETLY. NO SIGNS OF DISTRTESS NOTED. SIDE RAILS UP X3. BED IN LOW POSITION. CALL LIGHT IN REACH.
[2016-11-18 12:24] VITALS: BP 105/68
[2016-11-18 16:02] VITALS: BP 119/67
--- NOTE | 2016-11-18 19:30 | NUR ---
PATIENT RESTING IN BED WATCHING TV. PATIENT DENIES NEEDS AT THIS TIME. BED IN LOWEST POSITION AND CALL LIGHT WITHIN REACH. ENCOURAGED PATIENT TO CALL IF HE HAS OTHER NEEDS.
[2016-11-18 20:00] VITALS: BP 113/70
--- NOTE | 2016-11-18 21:25 | NUR ---
GAVE PATIENT A BEER PER HIS REQUEST.
--- NOTE | 2016-11-18 23:29 | NUR ---
PATIENT'S TEMP 102.3, ADMINISTERED TYLENOL.
[2016-11-19 00:52] VITALS: BP 112/67
[2016-11-19 05:40] VITALS: BP 94/57
--- NOTE | 2016-11-19 07:20 | NUR ---
PT REC'D FROM PAULINA ECKERT. RESTING IN BED WITH EYES CLOSED. NO SIGNS OF DISTRESS. RESP EVEN AND UNLABORED. BED LOW, CALL LIGHT IN REACH. CPOC.
[2016-11-19 08:06] VITALS: BP 95/57
--- NOTE | 2016-11-19 08:15 | NUR ---
PATIENT IN LOW ADAMS POSITION ALERT AND RESTING QUIETLY. RESPIRATIONS EVEN AND UNLABORED. SIDE RAILS UP X2. BED IN LOW POSITION. CALL LIGHT IN REACH.
--- NOTE | 2016-11-19 10:30 | NUR ---
MORNING MEDS PASSED AT THIS TIME. PT SITTING UP IN BED WATCHING TV. AAOX4. NO COMPLAINTS OF PAIN. BED LOW, CALL LIGHT IN REACH, DENIES NEEDS. CPOC.
[2016-11-19 12:40] VITALS: BP 102/59
[2016-11-19 16:02] VITALS: BP 81/52
--- NOTE | 2016-11-19 16:45 | NUR ---
LEONE CATHETER PULLED AT THIS TIME. HAD PREVIOUSLY BEEN CLAMPED AND PT REPORTED AT THIS TIME, "I FEEL LIKE I HAVE TO PEE." 8CC'S DEFLATED FROM BULB. 500CC'S OF STRAW COLORED CLEAR URINE EMPTIED FROM BAG. BED LOW, CALL LIGHT IN REACH, URINAL PROVIDED. CPOC.
[2016-11-19 19:00] VITALS: BP 111/65
--- NOTE | 2016-11-19 19:31 | NUR ---
PATIENT RESTING WITH EYES CLOSED. NO VISIBLE SIGNS OF DISTRESS. BED IN LOWEST POSITION AND CALL LIGHT WITHIN REACH.
[2016-11-20] VITALS: BP 108/65
[2016-11-20 04:00] VITALS: BP 108/66
[2016-11-20 08:12] VITALS: BP 82/52
--- NOTE | 2016-11-20 08:58 | NUR ---
PT SEEN AND ASSESSED. NO COMPLAINTS AT PRESESNT. LUNG SOUNDS DIMINISHED BILAT. OXYGEN AON AT 2LNC WITH NO SOB NOTED OR VOICED. ENCOURAGED PT TO EAT BREAKFAST PRIOR TO DRINKING BEER ON TRAY. BED ALARM ON FOR SAFETY. CALL LIGHT IN REACH
[2016-11-20 12:04] VITALS: BP 104/60
--- NOTE | 2016-11-20 13:44 | NUR ---
PT TEMP 103.0 ORALLY. LAB CALLED TO COME DRAW BLOOD CULTURES. CLEAN URINAL IN PLACE FOR URINE/C AND S. TYLENOL 500 MG PO X 1 GIVEN FOR TEMP
--- NOTE | 2016-11-20 15:17 | NUR ---
PROFUSE SWEATING NOTED. TEMP 98.0 TEMPORAL. BATH AND LINEN CHANGE DONE
[2016-11-20 16:09] VITALS: BP 97/54
--- NOTE | 2016-11-20 16:10 | NUR ---
IV RED AT SITE. RESITED TO LEFT UPPER ARM WITH 20 GA X 1
[2016-11-20 19:20] LABS: APPEARANCE CLEAR (CLEAR); BILIRUBIN NEGATIVE (NEGATIVE); COLOR DK YELLOW (YELLOW); GLUCOSE NEGATIVE (NEGATIVE); KETONE NEGATIVE (NEGATIVE); LEUKOCYTE ESTERASE NEGATIVE (NEGATIVE); NITRITE NEGATIVE (NEGATIVE); PROTEIN NEGATIVE (NEGATIVE); SPECIFIC GRAVITY 1.015 (1.005-1.020)
[2016-11-21 04:00] VITALS: BP 108/89
[2016-11-21 05:32] LABS: BASOPHILS 0.1 % (0.0-2.0); EOSINOPHILS 0.8 % (0-7); HEMATOCRIT 30.5 % (42.0-54.0); HEMOGLOBIN 10.1 g/dL (13.5-17.5); IMMATURE GRANULOCYTES 0.7 % (0-5); LYMPHOCYTES 10.2 % (15-50); MCH 33.7 pg (26.0-34.0); MCHC 33.1 g/dL (31.0-37.0); MCV 101.7 fL (80.0-100.0); MEAN PLATELET VOLUME 9.5 fL (7.4-10.4); NEUTROPHILS 78.2 % (40-80); PLATELET COUNT 305 10x3/uL (130-400); RDW 13.4 % (11.5-14.5); WBC 10.7 10x3/uL (4.8-10.8)
[2016-11-21 05:50] LABS: CALC OSMOLALITY 274 mosm/kg (275-300); CALCIUM 8.4 mg/dL (8.5-10.1); CARBON DIOXIDE 26.7 mmol/L (21.0-32.0); CHLORIDE - SERUM 103 mmol/L (98-107); CREATININE - SERUM 0.9 mg/dL (0.6-1.3); GLUCOSE 120 mg/dL (74-106); MAGNESIUM - SERUM 1.8 mg/dL (1.8-2.4); POTASSIUM - SERUM 3.7 mmol/L (3.5-5.1); SODIUM 138 mmol/L (136-145); UREA NITROGEN 7 mg/dL (7-18); eGFR NON AFRICAN AMERICAN > 90 mL/min (90-120)
[2016-11-21 08:41] VITALS: BP 108/60
--- NOTE | 2016-11-21 10:00 | NUR ---
Verbalized name and , reports no concerns at this time. SCD hose in place skin assessed. Call light within reach.
[2016-11-21 12:57] VITALS: BP 112/70
[2016-11-21 17:10] VITALS: BP 109/70
[2016-11-21 20:00] VITALS: BP 109/61
[2016-11-22] VITALS: BP 137/66
[2016-11-22 04:00] VITALS: BP 88/64
[2016-11-22 05:00] LABS: BASOPHILS 0.2 % (0.0-2.0); EOSINOPHILS 1.7 % (0-7); HEMATOCRIT 32.3 % (42.0-54.0); HEMOGLOBIN 10.5 g/dL (13.5-17.5); IMMATURE GRANULOCYTES 0.4 % (0-5); LYMPHOCYTES 9.4 % (15-50); MCH 33.4 pg (26.0-34.0); MCHC 32.5 g/dL (31.0-37.0); MCV 102.9 fL (80.0-100.0); MEAN PLATELET VOLUME 9.3 fL (7.4-10.4); MONOCYTES 8.6 % (2-11); NEUTROPHILS 79.7 % (40-80); PLATELET COUNT 333 10x3/uL (130-400); RBC 3.14 10x6/uL (4.20-6.10); RDW 13.5 % (11.5-14.5); WBC 10.6 10x3/uL (4.8-10.8)
[2016-11-22 05:14] LABS: CALC OSMOLALITY 275 mosm/kg (275-300); CALCIUM 8.8 mg/dL (8.5-10.1); CARBON DIOXIDE 29.3 mmol/L (21.0-32.0); CHLORIDE - SERUM 103 mmol/L (98-107); CREATININE - SERUM 0.9 mg/dL (0.6-1.3); GLUCOSE 130 mg/dL (74-106); MAGNESIUM - SERUM 1.9 mg/dL (1.8-2.4); SODIUM 138 mmol/L (136-145); UREA NITROGEN 6 mg/dL (7-18); eGFR NON AFRICAN AMERICAN > 90 mL/min (90-120)
--- NOTE | 2016-11-22 07:15 | NUR ---
QUIET IN ROOM AT PRESENT DENIES ANY NEEDS AT PRESENT IV CONT AT 100CC/HR/IVAC AT PRESENT N/C VOICED AT PRESENT.
--- NOTE | 2016-11-22 09:00 | NUR ---
MEDS GIVEN AT PRESENT DENIES AT PRESENT.
[2016-11-22 09:09] VITALS: BP 108/72
--- NOTE | 2016-11-22 10:00 | NUR ---
QUIET IN ROOM AT PRESENT N/C VOICED AT PRESENT.
--- NOTE | 2016-11-22 11:27 | NUR ---
11/22/2016 11:22 DCP: Discharge Planning CM met with patient yesterday afternoon regarding POC & DC disposition. He is agreeable to hospice & agrees he will need a nursing facility for care. Referral faxed and called to Paulo with [facility]. Paulo has made arrangements for patient to go to [place] for hospice care. Discussed with patient this morning. He is agreeable to POC. Spoke with Citlaly at [facility]. Transport van will pick him up around 1300. Nursing to call report to [phone]. Patient will be admitting to a alf care bed on hospice.
[2016-11-22] MEDS ORDERED: IPRAT-ALBUT 0.5-3 ML UPD (11:43)
[2016-11-22] MEDS ORDERED: RACEMIC EPI 2.0.5 ML (11:44)
--- NOTE | 2016-11-22 12:00 | NUR ---
QUIET IN ROOM AT PRESENT N/C VOICED AT PRESENT.
[2016-11-22 13:06] VITALS: BP 115/59
--- NOTE | 2016-11-22 13:30 | NUR ---
LEFT VIA W/C TO NH AT PRESENT.
--- NOTE | 2016-11-24 13:49 | CN ---
PATIENT NAME:DYLAN DALE MEDICAL RECORD: [id number] : 61 LOCATION:[id number] ADMIT DATE: 11/10/16 ACCOUNT: [id number] CONSULTING PHYSICIAN: NILO BALDWIN MD REFERRING PHYSICIAN: BERTA GORDON MD DATE OF CONSULTATION: 11/10/2016 CONSULT REQUESTING PHYSICIAN: Berta Gordon MD REASON FOR CONSULTATION: Questionable hemoptysis, history of CA of the lung. HISTORY OF PRESENT ILLNESS: Mr. Dale is a 51-year-old gentleman, who was diagnosed with a epithelial synovial carcinoma, December 2015. He was seen by Dr. Gordon as well as he was seen in the [facility] with a repeat endobronchial biopsy. But the patient noncompliant. He never followed up with Dr. Gordon for his chemotherapy. He came in yesterday, alcohol intoxication with alcohol level of 217. According to the patient, he has hemoptysis since he was seen in March at [facility], but hemoptysis is not persistent. He has no hemoptysis since yesterday. Denies any chest pain. REVIEW OF SYSTEMS: Mainly in the history of present illness. PAST MEDICAL HISTORY: 1. Childhood asthma. 2. History of alcohol abuse. 3. History of IV recreational drug abuse. 4. Cancer of the lung diagnosed in December 2015. PAST SURGICAL HISTORY: 1. He has a T&A. 2. Bronchoscopy with lung biopsy in December 2015. ALLERGIES: There are no known drug allergies. MEDICATIONS: auctionPAL was reviewed. PERSONAL AND SOCIAL HISTORY: The patient is still smoking. He is drinking on a regular basis. He is drinking almost 5 quarts of beer daily. FAMILY HISTORY: Not known. PHYSICAL EXAMINATION: GENERAL: Now, the patient is lying comfortably. He is not in acute distress. VITAL SIGNS: The blood pressure 150/83, pulse is 84, respirations 17, temperature 98.4, SpO2 is 97% on 4 liters nasal cannula. HEENT: Conjunctivae is pink, sclerae nonicteric. NECK: Supple, no JVD. CHEST: Chest excursion is minimal on both sides. There is no wheeze, no rales. HEART: Rhythm regular, normal sound, no murmur. ABDOMEN: Soft, bowel sounds present. No hepatosplenomegaly. RECTAL: Deferred. EXTREMITIES: No cyanosis, no clubbing, no pedal edema. SKIN: Warm, normal turgor. CENTRAL NERVOUS SYSTEM: Now, the patient is awake and alert, he is oriented times 4. Cranial nerves are intact. CONSULT REPORT [id number] [facility] DATA: CBC: The WBC is 10,000, hemoglobin 12.5, hematocrit 35.1 and the platelet count 376. Chemistry: Sodium is 120, potassium is 3.3, chloride 85, BUN is 9, creatinine 0.7, glucose 109. IMAGING: Chest radiograph, there is a questionable retrocardiac hiatal hernia, possible pericardial effusion. IMPRESSION: 1. 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 2. Hemoptysis, most likely secondary cancer of the lung. 3. Alcoholism. 4. Tobacco dependence syndrome. 5. Hyponatremia, most likely secondary to alcoholism. 6. Intravenous drug abuse. 7. History of childhood asthma, known history of latent tuberculosis, treated with chemotherapy for 6 months. RECOMMENDATION: 1. Continue vancomycin and Zosyn. 2. Start on racemic nebulizer. 3. Start on banana bag daily times 3. 4. Watch for DTs precaution. 5. Check ANCA level and anti-GBM though the patient has confirmed CA of the lung. 6. Continue albuterol/ipratropium nebulizer. 7. Consult to quit smoking. Dr. Gordon, once again thanks for involving me in the care of Mr. Dale. The critical care time was 45 minutes. TRANSINT:[id number] Voice Confirmation ID: [id number] DOCUMENT ID: [id number] NILO BALDWIN MD at 1349 CC: BERTA GORDON MD [id number] DICTATION DATE: 11/10/16 1215 FACTORY EXPERT: 11/10/161932 DIS IN 11/22/16 [address] [place] [address]
[2016-12-12 07:26] LABS: FUNGUS MYCOLOGY CULTURE Final report (())
== END 2016-11-22 14:16 | disposition home health service (06) | DRG 194 ==
LOC: D.ER 01:24 → D.CVICU 04:25 → D.MS 04:25
PROVIDERS: Emergency Medicine; Internal Medicine Hematology; Internal Medicine Pulmonary Disease; Radiology Diagnostic Radiology; ADMIT Legal Medicine
PROC: 0W993ZZ Drainage of Right Pleural Cavity, Percutaneous Approach (ICD-10-PCS; principal; 2016-11-14 09:30)
DX: J18.9 Pneumonia, unspecified organism (principal); C34.90 Malignant neoplasm of unspecified part of unspecified bronchus or lung; J90 Pleural effusion, not elsewhere classified; D69.6 Thrombocytopenia, unspecified; Z91.19 Patient's noncompliance with other medical treatment and regimen; Z87.891 Personal history of nicotine dependence; K76.0 Fatty (change of) liver, not elsewhere classified; F10.20 Alcohol dependence, uncomplicated; G89.29 Other chronic pain; J44.9 Chronic obstructive pulmonary disease, unspecified; J45.909 Unspecified asthma, uncomplicated; D64.9 Anemia, unspecified; Z66 Do not resuscitate